=== PATIENT | female | born 1990 | race Caucasian/White ===

== ENCOUNTER 2016-11-15 21:41 | Emergency (ER) | payer OTHER ==
[~2016-11-15 21:41] MED LIST: ALBUTEROL SULF8.5 G1 IH; ALBUTEROL17 GM; ALBUTEROL17 GM INH; ALBUTEROL2.5 MG/0.5 IH; AMOXICILLIN PO; AMOXICILLIN875 MG PO; AUGMENTIN 875-11 TAB PO; BAYER ASPIRIN325 MG PO; BENTYL20 MG PO; CENTRUM TABLET1 TAB; CEPHALEXIN500 M PO; CIPRO500 M1 PO; CIPRO500 MG PO; COLACE100 MG PO; CYCLOBENZAPRINE5 M1 PO; DARVON65 MG PO; DEMEROL50 MG PO; EXCEDRIN MIGRA1 EAC3 PO; FLAGYL500 MG; FLAGYL500 MG PO; FLEXERIL10 MG PO; FLOVENT HFA12 GM IH; GENOPTIC5 ML OP; GLUCOPHAGE500 MG PO; IBUPROFEN800 MG; IBUPROFEN800 MG PO; KEFLEX500 MG; KEFLEX500 MG PO; KEPPRA; LEVAQUIN500 MG PO; METROGEL-VAGINA70 GM VG; MIRALAX12 EA; NO HOME MEDICATION; NO HOME MEDS; NO MEDICATIONS; NORCO 5-325 TA1 EACH PO; NORCO 5/325 TAB1 TAB PO; NORCO 5/3251 TAB PO; ONDANSETRON ODT4 MG PO; ORTHO TRI-7 DAYS X; ORTHO TRI-7 DAYSX 3; OXYCODONE; OXYCODONE HCL5 M1 PO; OXYCODONE HCL5 MG PO; OXYIR5 MG PO; PERCOLONE5 MG PO; PHENERGAN W/CO120 ML PO; PHENERGAN25 M1 PO; PREDNISONE20 MG PO; PRENATAL1 EACH PO; PREVACID; PREVACID15 M1 PO; PREVACID30 MG PO; PRILOSEC OTC20 M1 PO; PRILOSEC10 MG; PRILOSEC40 MG PO; PROVENTIL17 GM; PYRIDIUM200 M1 PO; PYRIDIUM200 MG PO; ROXICODONE5 MG PO; TOPAMAX; TRAMADOL HCL50 MG PO; ULTRAM50 MG PO; ZANTAC150 MG PO; ZOFRAN ODT4 MG/UDTAB PO; ZOLOFT25 MG PO; [UNRECOGNIZED DRUG - OTHER] OP; [UNRECOGNIZED DRUG - OTHER] PO; [UNRECOGNIZED DRUG - REMARK]
== END 2016-11-15 22:48 ==
LOC: EDMED 21:41
DX: G43.909 Migraine, unspecified, not intractable, without status migrainosus (principal)
CPT/HCPCS: J0780; J1200; J1885; J7030

== ENCOUNTER 2017-02-07 12:28 | Emergency (ER) | payer OTHER ==
[2017-02-07] MEDS ORDERED: KEFLEX500 M4 PO (13:03)
== END 2017-02-07 13:23 ==
LOC: EDMED 12:28
DX: I88.9 Nonspecific lymphadenitis, unspecified (principal)